=== PATIENT | female | born 1960 | race African-American/Black ===

== ENCOUNTER → 2018-08-18 | Day surgery (SDC) | payer BC ==
[2018-08-17 13:18] LABS: BASOPHILS # (AUTO) 0.1 (0.0-0.1); BASOPHILS % 1.2 % (0.0-1.0); EOSINOPHILS # (AUTO) 0.4 (0.0-0.4); EOSINOPHILS % 8.5 % (0.0-6.0); HEMATOCRIT 33.4 % (34.2-44.1); HEMOGLOBIN 10.9 g/dL (12.0-16.0); LYMPHOCYTES # (AUTO) 2.4 (1.0-3.2); LYMPHOCYTES % 48.1 % (18.0-39.1); MEAN CORPUSCULAR HEMOGLOBIN 29.4 pg (28-32); MEAN CORPUSCULAR HGB CONC 32.6 g/dL (31-35); MONOCYTES # (AUTO) 0.5 (0.2-0.8); MONOCYTES % 9.9 % (4.4-11.3); NEUTROPHILS # (AUTO) 1.6 (2.1-6.9); NEUTROPHILS % 32.1 % (38.7-80.0); PLATELET COUNT 245 x10e3/uL (140-360); RED BLOOD COUNT 3.71 x10e6/uL (3.6-5.1); RED CELL DISTRIBUTION WIDTH 13.9 % (11.7-14.4)
[2018-08-17 13:44] LABS: ALANINE AMINOTRANSFERASE 11 IU/L (0-55); ALBUMIN 3.9 g/dL (3.5-5.0); ALBUMIN/GLOBULIN RATIO 1.1 (0.8-2.0); ALKALINE PHOSPHATASE 63 IU/L (40-150); ANION GAP 8.5 mmol/L (8-16); BLOOD UREA NITROGEN 15 mg/dL (7-26); BUN/CREATININE RATIO 20 (6-25); CARBON DIOXIDE 28 mmol/L (22-29); CHLORIDE 108 mmol/L (98-107); CREATININE, SERUM 0.75 mg/dL (0.57-1.11); EST GLOMERULAR FILTRATION RATE > 60 ML/MIN (60-); GLUCOSE 98 mg/dL (74-118); POTASSIUM 3.5 mmol/L (3.5-5.1); SODIUM 141 mmol/L (136-145)
[2018-08-17 13:51] LABS: INR 0.95; PROTHROMBIN TIME 13.2 seconds (11.9-14.5)
[2018-08-18] VITALS (9 sets, daily range): BP systolic 117–153; BP diastolic 70–100
[~2018-08-18] VITALS: Ht 157.5 cm; Wt 57.6 kg
[~2018-08-18] MED LIST: ASPIR 8181 MG PO; ATENOLOL50 MG PO; FENTANYL CITRATE/PF 100MCG/2 ML INJ ONE; HEPARIN SOD (PORCINE) 1000 UNIT/ML 30ML ONE; HEPARIN SOD/SOD CHLORIDE 2,000 ML ONE; HYDROCHLOROTHIA25 MG PO; IOPAMIDOL 370 MG/ML 200 ML INFUS..BTL INJ ONE; LIDOCAINE HCL 2% LOCAL 20 ML VIAL ONE; LOSARTAN POTASS25 MG PO; MIDAZOLAM HCL 2 MG/2 ML VIAL ONE; NITROGLYCERIN/D5W 200 MCG/ML 250 ML ONE; RESTASIS1 EACH OP; SODIUM CHLORIDE 0.9% 1000ML 1,000 ML ONE; VERAPAMIL HCL 2.5 MG/ML 2 ML VIAL ONE
--- OUTSIDE RECORDS SUMMARY | 2018-08-18 06:13 | XMS REPORT | Encounter Summary ---
Author Organization Unknown Address [address] [place] [address] Phone [phone] Care Team Providers Care Chief Program Officer Name Role Phone Dr. Chantelle Snider 3 [phone] Grant Younger MD 126 [phone] Reason for Visit Essential hypertension Instructions 1. Essential hypertension atenolol 50 mg tablet hydrochlorothiazide 25 mg tablet losartan 50 mg tablet 2. Immunization 3. Screening for malignant neoplasm of breast MAMMO, screening, digital, bilateral - please schedule & contact our patient thank you 4. Screening for malignant neoplasm of colon colonoscopy referral - Please schedule & contact our patient. thank you. 5. Body mass index 20-24 - normal Discussion Note: None recorded. Patient educational handouts: No information available. Plan of Care Reminders Provider Appointments Est Patient 07/29/2018 9:30AM Chantelle Snider MD Lab None recorded. Referral Colonoscopy Referral 05/02/2018 Ulysses Martinez MD Procedures None recorded. Surgeries None recorded. Imaging MAMMO, Screening, Digital, Bilateral 05/02/2018 [facility] (Imaging) Medications Name Start Date atenolol 50 mg tablet TAKE 1 TABLET BY MOUTH EVERY DAY Vero Chewable Low Dose Aspirin 81 mg tablet Chew 1 tablet every day by oral route. hydrochlorothiazide 25 mg tablet Take 1 tablet every day by oral route for 90 days. losartan 50 mg tablet Take 1 tablet every day by oral route for 90 days. Restasis MultiDose 0.05 % eye drops 1 drop twice a day in both eyes Medications Administered None recorded. Vitals Height Weight BMI Blood Pressure 5 ft 2.6 in 133 lbs 23.9 kg/m2 120/74 mm[Hg] Lab Results None recorded. Allergies Code Code System Name Reaction Severity Status Onset 184901 RxNorm Levaquin Active Problems Name Status Onset Date Source Perimenopausal State Active 06/24/2017 Essential Hypertension Active Procedures Date Name Performed by Knee Surgery Information not available Hysterectomy (Partial) Information not available 05/02/2018 MAMMO, Screening, Digital, Bilateral [facility] (Imaging) [address] [place] [address] (Work Place) Vaccine List Vaccine Type Tdap 10/06/20160.5 mL Social History Smoking Status Never Smoker Past Encounters 05/02/2018 Essential Hypertension; Immunization; Screening for Malignant Neoplasm of Breast; Screening for Malignant Neoplasm of Colon; Body Mass Index 20-24 - Normal Chantelle Snider MD: [address] [place] [address], Ph. History of Present Illness Note:57yo female presents for follow-up visit. Last visit two months ago on 03/01/18.<div>Since last visit, pt's sister is currently hospitalized at [facility] in [place] for pleural effusions. Sister has hx of breast cancer & now has new spot on lung. Parents were also recently here from [place] for father to return to his doctors three spots in his lungs & amp; spot on colon - concerning for cancer. Pt has been going to hospital daily. </div><div>
</div><div>Pt has been doing well, just tired & worried with family health issues. Here today for medication refill of blood pressure medications. BP 120/74 in office today. At time of last visit, cardiology referral placed for second opinion regarding variable bp. Pt has not been able to schedule with Dr Lilly Geiger yet, and requests that we reprint referral. Referral good until 08/2018.</div><div>
</div><div>Pt without c/o today. No SOB or CP. No Lightheadedness. Patient is taking medicine consistently. Not having any issues with them. </div>
Previously:
Still having variable blood pressure. Some home readings very low & some very high. Highest home bp 150-160/80-90 with pulse 90-100s. Lowest bp 87/63 with pulse 110bpm. Often feels heart is racing.<div><div><span style="font-size: 14px;">Currently taking atenolol 50mg qd, losartan 50mg qd, hctz 25mg qd. </span><span style="font-size: 14px;">Pt had cardiology evaluation with Dr. Correa on 06/23. Had two visits with him & had normal </span>TMET<span style="font-size: 14px;"> & normal echo. No abnormalities seen. </span></div><div><span style="font-size: 14px;">Hx of labile HTN with multiple ER/urgent care visits in Mar 2017 & Apr 2017.< /span></div><div><span style="font-size: 14px;">
</span></div><div><span style="font-size: 14px;">Previously:</span></div><div><span style="font-size: 14px;">Has never had colonoscopy - had first one earlier this year with Dr. Martinez. Here today for evaluation of increased anxiety. Pt does not wish for medication, but would be willing to talk to counselor. Psychology referral placed. (Did not go). Considering Disability determination - stopped working in 2017 due to bp & anxiety.</span>
</div><div><div></div> <div>PMHx<span style="font-size: 14px;">:</span>
</div><div><div><div><div>Had Pap & mammogram ([facility]) with Dr. Younger since last visit on 09/2017. Pt had partial hysterectomy at age 31. Sister with breast cancer.</div><div> Hypertension - on medication for past 15yrs.
</div></div></div></div></div>< /div> Review of Systems:ROS as noted in the HPI Review of Systems Comprehensive General Adult ROS Reported By: Patient Constitutional: Constitutional: no fever Eyes: Eyes: no vision change Cardiovascular: Cardiovascular: no chest pain, no shortness of breath when walking, no known heart murmur, palpitations Respiratory: Respiratory: no cough, no wheezing, no shortness of breath Gastrointestinal: Gastrointestinal: no abdominal pain Musculoskeletal: Musculoskeletal: no muscle aches, no arthralgias/joint pain Neurologic: Neurologic: no loss of consciousness, no weakness, no numbness, no dizziness, no headaches Psychiatric: Psych: no depression, feeling safe in a relationship, no alcohol abuse, no hallucinations, no suicidal thoughts, anxiety Endocrine: Endocrine: ; hot flashes Physical Exam General Adult Exam (Female), Cardiology Exam Reported By: Patient Constitutional: General Appearance: healthy-appearing, well-nourished, well-developed, appears stated age. Level of Distress: NAD. Ambulation: ambulating normally Psychiatric: Insight: good judgement. Mental Status: active and alert, normal mood, normal affect. Orientation: oriented to time, place, and person Eyes: Lids and Conjunctivae: non-injected. Pupils: PERRLA. EOM: EOMI. Sclerae: non-icteric ENMT: Oropharynx: moist mucous membranes, no erythema Lungs: Respiratory effort: no dyspnea. Percussion: resonant. Auscultation: breath sounds normal, good air movement, no wheezing, no rales/crackles Cardiovascular: Heart Auscultation: RRR, normal S1, normal S2, no murmurs. Neck vessels: no carotid bruits. Pulses including femoral / pedal: normal throughout Abdomen: Bowel Sounds: normal. Inspection and Palpation: soft Musculoskeletal:: Motor Strength and Tone: normal motor strength. Joints, Bones, and Muscles: normal movement of all extremities, no bony abnormalities, no tenderness. Extremities: no edema; no synovitis in hands Neurologic: Gait and Station: normal gait. Cranial Nerves: grossly intact. Sensation: grossly intact
--- OUTSIDE RECORDS SUMMARY | 2018-08-18 06:13 | XMS REPORT ---
Author Author [facility] Address Unknown Phone Unavailable Care Team Providers Care Infirmary Attendant Name Role Phone Unavailable Unavailable Payers Payer Name Policy Type Policy Number Effective Date Expiration Date Problems This patient has no known problems. Allergies, Adverse Reactions, Alerts Allergy Name Allergy Type Status Severity Reaction(s) Onset Date Inactive Date Treating Clinician Comments No Known Allergies DA Active U 2017-05-23 00:00:00 Medications This patient has no known medications.
--- OUTSIDE RECORDS SUMMARY | 2018-08-18 06:13 | XMS REPORT | Continuity of Care Document ---
Author Author Walter pedroza [facility] Interface Address Unknown Phone Unavailable Problems Problem Status Onset Date Classification Date Reported Comments Source Essential hypertension 05/02/2018 Diagnosis 05/22/2018 [facility] Body mass index 20-24 - normal 05/02/2018 Diagnosis 05/22/2018 [facility] Screening for malignant neoplasm of colon 05/02/2018 Diagnosis 05/22/2018 [facility] Immunization 05/02/2018 Diagnosis 05/22/2018 [facility] Perimenopausal State 06/24/2017 Problem 05/22/2018 [facility] Essential Hypertension Problem 05/22/2018 [facility] Medications Medication Details Route Status Patient Instructions Ordering Provider Order Date Source Atenolol 50 MG Oral Tablet atenolol 50 mg tablet TAKE 1 TABLET BY MOUTH EVERY DAY Active [facility] Aspirin 81 MG Chewable Tablet [Vero Aspirin] Vero Chewable Low Dose Aspirin 81 mg tablet Chew 1 tablet every day by oral route. Active [facility] Hydrochlorothiazide 25 MG Oral Tablet hydrochlorothiazide 25 mg tablet Take 1 tablet every day by oral route for 90 days. Active [facility] Losartan Potassium 50 MG Oral Tablet losartan 50 mg tablet Take 1 tablet every day by oral route for 90 days. Active [facility] Cyclosporine 0.5 MG/ML Ophthalmic Suspension [Restasis] Restasis MultiDose 0.05 % eye drops 1 drop twice a day in both eyes Active [facility] Allergies, Adverse Reactions, Alerts Substance Category Reaction Severity Reaction type Status Date Reported Comments Source Levaquin Allergy to substance 01/22/2016 [facility] Immunizations Immunization Date Given Site Status Last Updated Comments Source Tdap 10/06/2016 completed [facility] Results Order Name Results Value Reference Range Date Interpretation Comments Source Vital Signs Vital Sign Value Date Comments Source Diastolic (mm Hg) 74 05/02/2018 [facility] Height 62.6 05/02/2018 [facility] Systolic (mm Hg) 120 05/02/2018 [facility] Weight 133 05/02/2018 [facility] Encounters Location Location Details Encounter Type Encounter Number Reason For Visit Attending Provider ADM Date DC Date Status Source [place] - [facility] - [place] Chantelle Snider MD: [address] [place] [address], Ph. [id number] Chantelle Snider 05/02/2018 [facility] Procedures Procedure Code Date Perfomer Comments Source MAMMO, screening, digital, bilateral 05/02/2018 [facility] Knee Surgery [facility] Hysterectomy (Partial) [facility]
--- OUTSIDE RECORDS SUMMARY | 2018-08-18 06:13 | XMS REPORT | Encounter Summary ---
Author Organization Unknown Address [address] [place] [address] Phone [phone] Care Team Providers Care Care Management Specialist Name Role Phone Dr. Chantelle Snider 3 [phone] Grant Younger MD 126 [phone] Reason for Visit chest pain; Left neck pain; Left shoulder pain Instructions 1. Angina pectoris electrocardiogram Nitrostat 0.4 mg sublingual tablet 2. Essential hypertension 3. Immunization refused 4. Body mass index 20-24 - normal Discussion Note: None recorded. Patient educational handouts: No information available. Plan of Care Reminders Provider Appointments Est Patient 06/24/2018 10:00AM Chantelle Snider MD Est Patient 07/29/2018 9:30AM Chantelle Snider MD Lab None recorded. Referral None recorded. Procedures None recorded. Surgeries None recorded. Imaging Electrocardiogram 06/10/2018 [facility] [place] Medications Name Start Date acetaminophen 300 mg-codeine 30 mg tablet atenolol 50 mg tablet TAKE 1 TABLET BY MOUTH EVERY DAY Vero Chewable Low Dose Aspirin 81 mg tablet Chew 1 tablet every day by oral route. cyclobenzaprine 5 mg tablet docusate sodium 100 mg tablet Take 1 tablet twice a day by oral route. hydrochlorothiazide 25 mg tablet Take 1 tablet every day by oral route for 90 days. losartan 50 mg tablet Take 1 tablet every day by oral route for 90 days. Nitrostat 0.[address] 1 tablet by sublingual route as needed. Take one tablet under tongue as needed for chest pain. May repeat in 5 minutes. Call 911 if taking third tablet. Restasis MultiDose 0.05 % eye drops 1 drop twice a day in both eyes Medications Administered None recorded. Vitals Height Weight BMI Blood Pressure 5 ft 2.6 in 133 lbs 23.9 kg/m2 134/86 mm[Hg] Lab Results Date Name Specimen Result Interpretation Description Value Range Status Address 06/12/2018 Electrocardiogram Rate & Rhythm [facility] [place]: [address] [place] Qrs [facility] [place]: [address] [place] Interval [facility]) [place]: [address] [place] Duration [facility]) [place]: [address] [place] QT Interval [facility]) [place]: [address] [place] Allergies Code Code System Name Reaction Severity Status Onset 374412 RxNorm Levaquin Active Problems Name Status Onset Date Source Perimenopausal State Active 06/24/2017 Essential Hypertension Active Procedures Date Name Performed by Knee Surgery Information not available Hysterectomy (Partial) Information not available 06/10/2018 Electrocardiogram [facility] [place] [address] [place] [address] (Work Place) Vaccine List Vaccine Type Tdap 10/06/20160.5 mL Social History Smoking Status Never Smoker Past Encounters 06/10/2018 Angina Pectoris; Essential Hypertension; Immunization Refused; Body Mass Index 20-24 - Normal Chantelle Snider MD: [address] [place] [address], Ph. History of Present Illness Note:57yo female presents for further evaluation of chest pain & elevated bp. Went to ER in [place] last night for evaluation of chest pain radiating to neck & shoulder. Had serial ECGs and bloodwork, per pt - no SC. Pt has hx of labile htn with prior episodes of hypertension with discomfort in left chest radiating to jaw, left shoulder & back. Was evaluated by cardiology, Dr Correa in past, but had difficulty scheduling appointments in his office. Was referred to second performance management consultant at last office visit - plans to call & schedule appt in morning with Dr Geiger (referral placed at 03/01/18 visit). <div>Pt describes left sided "heaviness" or chest pressure rating about 7-8/10 at worst. No associated palpitations, diaphoresis, N/V, dyspnea. Does not radiate into left arm, jaw or back this time.</div>
Previously:
Still having variable blood pressure. Some home readings very low & some very high. Highest home bp 150-160/80-90 with pulse 90-100s. Lowest bp 87/63 with pulse 110bpm. Often feels heart is racing.<div><div><span style="font-size: 14px;">Currently taking atenolol 50mg qd, losartan 50mg qd, hctz 25mg qd. </span ><span style="font-size: 14px;">Pt had cardiology evaluation with Dr. Correa on 06/23/17. Had two visits with him & had normal </span>TMET<span style="font- size: 14px;"> & normal echo. No abnormalities seen. </span></div><div><span style="font-size: 14px;">Hx of labile HTN with multiple ER/urgent care visits in Mar 2017 & Apr 2017.</span></div><div><span style="font-size: 14px;">
< /span></div><div><span style="font-size: 14px;">Previously:</span></div><div>< span style="font-size: 14px;">Has never had colonoscopy - had first one earlier this year with Dr. Martinez. Here today for evaluation of increased anxiety. Pt does not wish for medication, but would be willing to talk to counselor. Psychology referral placed. (Did not go). Considering Disability determination - stopped working in 2017 due to bp & anxiety.</span>
</div ><div><div></div> <div>PMHx<span style="font-size: 14px;">:</span>
</div><div ><div><div><div>Had Pap & mammogram ([facility]) with Dr. Younger since last visit on 09/2017. Pt had partial hysterectomy at age 31. Sister with breast cancer.</div><div>Hypertension - on medication for past 15yrs.
< /div></div></div></div></div></div> Review of Systems:ROS as noted in the [...] flashes Physical Exam General Adult Exam (Female), Musculoskeletal and Joint Exam, Cardiology Exam Reported By: Patient Constitutional: General [...]
--- NOTE | 2018-08-18 18:14 | Operative Report ---
DATE OF PROCEDURE: 08/18/2018 SURGEON: Lilly Geiger MD PROCEDURE PERFORMED: 1. Selective coronary angiography x2. 2. Left heart catheterization. INDICATION: Abnormal nuclear stress test INFORMED CONSENT: Informed consent was obtained and documented in the chart. SEDATION: 1. Versed 2 mg. 2. Fentanyl 50 mcg. PROCEDURE IN DETAIL: The patient was brought to the cardiac catheterization laboratory in a fasting state after written informed consent was obtained. Bilateral groins and right wrist were prepped and draped in the usual sterile fashion. 1% lidocaine was used to achieve local anesthesia over the right wrist. Micropuncture needle was used to access the right radial artery. Long 5-Tunisian sheath was inserted via modified Seldinger technique. A 5-Tunisian TIG was inserted and advanced into the ascending aorta. The right coronary artery was cannulated under fluoroscopic guidance. Selective coronary angiogram was performed. Next, the catheter was then repositioned into the left main coronary artery under fluoroscopic guidance. Selective coronary angiograms were obtained. The catheter was repositioned and advanced into the left ventricle over the wire. Hemodynamic measurements were obtained. The catheter was withdrawn over the J-wire followed by the 5-Tunisian sheath. TR band was placed to achieve hemostasis. No immediate complications were noted. FINDINGS: 1. Left main coronary artery trifurcates into the left anterior descending, ramus, and circumflex arteries. 2. The LAD is a moderate caliber vessel that wraps around the apex and gives rise to a medium size first diagonal. There was no angiographic evidence of disease. 3. The ramus is a large vessel without evidence of coronary artery disease. 4. Circumflex is a small caliber vessel. There was no angiographic evidence of disease. 5. The right coronary artery is a large caliber vessel which gives rise to the PDA. There was no evidence of coronary artery disease. 6. LV pressure 127/2, LVEDP 13 mmHg. IMPRESSION: 1. Normal coronary arteries. 2. Normal LV filling pressures. RECOMMENDATIONS: Risk factor modification. Lilly Geiger MD ABS/MODL /[id number] [facility]
== END | disposition home or self-care (01) ==
LOC: CATH LAB 06:10
PROVIDERS: ATTEND Internal Medicine
DX: R07.9 Chest pain, unspecified (principal); R94.39 Abnormal result of other cardiovascular function study; I10 Essential (primary) hypertension; E78.5 Hyperlipidemia, unspecified; Z79.82 Long term (current) use of aspirin; Z82.49 Family history of ischemic heart disease and other diseases of the circulatory system
CPT/HCPCS: 36415; 80053; 85610; 85025; 93458; C1769; C1887; J1644; J2001; J2250; J7030; Q9967

== ENCOUNTER → 2024-10-16 | Outpatient (REF) | payer BC ==
[~2024-10-16] MED LIST changes: -FENTANYL CITRATE/PF 100MCG/2 ML INJ ONE; -HEPARIN SOD (PORCINE) 1000 UNIT/ML 30ML ONE; -HEPARIN SOD/SOD CHLORIDE 2,000 ML ONE; -IOPAMIDOL 370 MG/ML 200 ML INFUS..BTL INJ ONE; -LIDOCAINE HCL 2% LOCAL 20 ML VIAL ONE; -MIDAZOLAM HCL 2 MG/2 ML VIAL ONE; -NITROGLYCERIN/D5W 200 MCG/ML 250 ML ONE; -SODIUM CHLORIDE 0.9% 1000ML 1,000 ML ONE; -VERAPAMIL HCL 2.5 MG/ML 2 ML VIAL ONE
== END ==
LOC: NM 08:04
PROVIDERS: ATTEND Internal Medicine Gastroenterology
DX: R10.13 Epigastric pain (principal); R14.0 Abdominal distension (gaseous); Z68.23 Body mass index [BMI] 23.0-23.9, adult; I10 Essential (primary) hypertension; K64.8 Other hemorrhoids; K44.9 Diaphragmatic hernia without obstruction or gangrene; R07.89 Other chest pain; K76.89 Other specified diseases of liver; D64.9 Anemia, unspecified; Z86.0100 Personal history of colon polyps, unspecified; Z87.891 Personal history of nicotine dependence
CPT/HCPCS: 78264; A9541